=== PATIENT | female | born 1990 ===

== ENCOUNTER → 2023-07-16 06:23 | Day surgery (SDC) | payer SELFPAY ==
[2023-07-16] VITALS (10 sets, daily range): BP systolic 101–126; BP diastolic 56–74; BMI 20.9
[2023-07-16] MEDS: NEURONTIN 300 MG PO (09:15)
[2023-07-16] MEDS: TYLENOL 1000 MG PO (09:16)
[2023-07-16] MEDS: NORMOSOL-R 1000 IV (09:37)
[2023-07-16 09:50] LABS: Hematocrit 39.6 % (37.0-47.0); Hemoglobin 13.5 g/dL (12.0-16.0); Mean Corp Hgb Conc. 34.1 g/dL (33.0-37.0); Mean Corpuscular Hgb 31.8 pg (27.0-31.0); Mean Corpuscular Volume 93.4 fL (81.0-99.0); Mean Platelet Volume 8.1 fL (7.4-10.4); Platelet Count 265 10^3/uL (130-400); Red Blood Cell Count 4.24 10^6/uL (4.20-5.40); Red Cell Dist. Width 12.3 % (11.5-14.5); White Blood Cell Count 3.5 10^3/uL (4.8-10.8)
[2023-07-16 10:48] LABS: Blood Urea Nitrogen 11 mg/dl (7-17); Calcium 9.3 mg/dl (8.4-10.2); Carbon Dioxide 25 mmol/L (22-30); Chloride 106 mmol/L (98-107); Estimated Creatinine Clearance 106 ml/min; Glucose 90 mg/dl (70-99); Sodium 137 mmol/L (135-145); eGFR > 60.00
[2023-07-16] MEDS: ROXICODONE 5 MG PO (19:23)
[2023-07-16] MEDS: ZOFRAN 4 MG IV (19:41)
== END ==
LOC: COSMETIC 06:23
PROVIDERS: ATTENDING PHYSICIAN Otolaryngology
DX: Z41.1 Encounter for cosmetic surgery (principal); M95.0 Acquired deformity of nose
CPT/HCPCS: 30450; 20910; 80048; 85027